=== PATIENT | female | born 2000 | race Two or more races ===

== ENCOUNTER 2025-06-26 17:28 | Emergency (ER) | payer MEDICAID, OTHER ==
[~2025-06-26] VITALS: Ht 162.6 cm; Wt 87.1 kg
[2025-06-26 17:33] VITALS: BP 133/81; PULSE 84; RESP 16; TEMP 98.3; O2SAT 96
[2025-06-26] MEDS ORDERED: CETI10TA2 PO (19:18)
[2025-06-26] MEDS ORDERED: [UNRECOGNIZED DRUG - CODE] TOP (19:18)
--- NOTE | 2025-06-26 19:22 | ED.PDOC ---
HPI Allergic reaction HPI Comments 25y F who presents to the ED for chief complaint of rash. Pt states she was at hotel over the weekend with boyfriend and states, 2 days ago she started to develop a whole body rash. Patient notes her boyfriend also developed a similar rash, which they presumed was due to some kind of exposure or product at the hotel. Pt states she has since been taking Benadryl and states the rash has not improved with noted rash on the her arms. Pt states she came to the ED today due to persistence of itching. Pt denies fever, pain, shortness of breath or swe lling. She denies any known new exposures, products, foods or medications other than what was used at the hotel. Pt otherwise denies any other symptoms. 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 Moist mucous membranes.) Neck: Full Range of Motion, Normal Inspection Respiratory: Lungs Clear, No Accessory Muscle Use, No Respiratory Distress, Normal Breath Sounds Cardiovascular: No Edema, No JVD, Regular Rate/Rhythm Breast Exam: Deferred Gastrointestinal: Non Tender, Soft Genitalia: Deferred Pelvic: Deferred Rectal: Deferred Extremities: Normal range of motion, Non-tender, No pedal edema Neurologic: Alert (Oriented x4), Normal Affect, Normal Mood, Other (Ambulatory) Cerebellar Function: NOT DONE Reflexes: NOT DONE Skin: Dry, Warm, Other (Mildly erythematous fine papular rash on trunk and extremity. Nontender. No edema. No open lesions.) Lymphatic: NOT DONE Was a procedure done? Was a procedure done?: No Differential diagnosis (all) Differential Diagnosis: Contact Dermatitis, Drug Reaction, Urticaria, Other (Other allergic reaction, viral exanthem, among other) X-Ray, Labs, Meds, VS Vital Signs Date Time Temp Pulse Resp B/P (MAP) Pulse Ox O2 Delivery O2 Flow Rate FiO2 06/26/25 17:33 98.3 84 16 133/81 96 98.3 X-Ray, Labs, Meds, VS Comment 25-year-old female with history of UTIs complaining of a body rash Vitals unremarkable Exam remarkable for a fine mildly erythematous papular rash on trunk and extremities Rhythm strip independently interpreted by me: Sinus rhythm, rate 84, no ectopy. Patient treated with the following in the ED: Decadron 10 mg IM On re-evaluation, patient is well-appearing and states she feels comfortable. Vitals were stable. Patient appears stable for discharge with close outpatient follow-up with her primary physician. Rx cetirizine, hydrocortisone Time of 1ST Reevaluation: 19:29 Reevaluation 1ST: Unchanged Patient Education/Counseling: Diagnosis, Treatment Family Education/Counseling: No Family Present SEPSIS Sepsis Screen Date sepsis recognized/suspect: Jun 26, 2025 Time Sepsis recognized/suspect: 1732 Recent Procedure: No On Antibiotic Therapy: No Respiratory Rate >20: No Heart Rate >90: No Temp<36 C (96.8 F) or >38.3 C: No SBP <90 or MAP <65 mmHG: No New Acute Mental Status Change: No Is the patient on CPAP, BIPAP,: No Vital Signs Date Time Temp Pulse Resp B/P (MAP) Pulse Ox O2 Delivery O2 Flow Rate FiO2 06/26/25 17:33 98.3 84 16 133/81 96 98.3 Departure 1 Departure Time of Disposition: 19:29 Impression: Primary Impression: Rash Disposition: HOME / SELF CARE / HOMELESS Condition: Stable Additional Instructions: I have prescribed antihistamines and an anti-itch cream. Follow-up with your primary doctor in 1-2 days. e-Prescriptions Hydrocortisone Acetate (Topica (Hydrocortisone) 1 % Cre 1 APPLIC TOP BID PRN, #30 GRAMS Prov: AU NATALIO,MYRA T MD 06/26/25 Cetirizine Hcl (Kls Aller-Renetta) 10 Mg Tab 1 TAB PO DAILY PRN, #30 TAB 3 Refills Prov: MYRA SANCHEZ MD 06/26/25 Discharged With: Self Critical Care Note Critical Care Time?: No Stability Stability form required: No Heart Score Heart Score: Heart Score Response (Comments) Value History N/A 0 EKG N/A 0 Age N/A 0 Risk Factors N/A 0 Troponin N/A 0 Total 0 I personally scribed for MYRA SANCHEZ MD ([email or web address]) on 06/26/25 at 19:22. Electronically submitted by Kezia Pan ([email or web address]). MYRA SANCHEZ MD Jun 26, 2025 19:22
== END 2025-06-26 19:41 | disposition home or self-care (01) ==
LOC: ER 17:28
DX: R21 Rash and other nonspecific skin eruption (principal); Z87.440 Personal history of urinary (tract) infections
CPT/HCPCS: 96372; 99283; J1100